=== PATIENT | female | born 1965 | race Caucasian/White ===

== ENCOUNTER → 2016-12-17 | Outpatient (CLI) | payer BC ==
--- NOTE | 2016-12-17 20:25 | XR ---
EXAMINATION TYPE: XR knee complete bilateral DATE OF EXAM: 12/17/2016 COMPARISON: NONE HISTORY: Pain TECHNIQUE: 7 views FINDINGS: Knee joint spaces are fairly normal. There is normal alignment. There is no sign of knee jacklyn int effusion. I see no fracture. There is mild spurring of the lateral tibial condyles. IMPRESSION: Mild spur formation without significant joint space narrowing. No fracture.
== END ==
LOC: RADXRMAIN 17:26
PROVIDERS: ATTEND Family Medicine
DX: M76.891 Other specified enthesopathies of right lower limb, excluding foot (principal); M76.892 Other specified enthesopathies of left lower limb, excluding foot

== ENCOUNTER → 2017-10-12 | Outpatient (CLI) | payer BC ==
--- NOTE | 2017-10-12 13:44 | EST ---
EXERCISE STRESS DATE OF SERVICE: 10/12/2017 AGE: 52 SEX: Female HT: 60 WT: 150 PROTOCOL: Geovany STAGE: IV DURATION OF EXERCISE: 9:15 HEART RATE REST: 74 BLOOD PRESSURE REST: 144/86 MAXIMUM HEART RATE ACHIEVED: 150 MAXIMUM BLOOD PRESSURE: 212/90 85% MPHR: 145 100% MPHR: 170 METS: 10.1 INDICATIONS: Palpitations, shortness of breath. CLINICAL INFORMATION: A 52-year-old female, patient of Dr. Duval, who complains of recurrent palpitations that can last for almost a minute (racing heart). She also may have recent onset hypertension. Family history of hypertension. Baseline heart rate 74 beats per minute. Baseline blood pressure 144/86 mmHg. Baseline 12-lead ECG shows normal sinus rhythm with normal cardiac intervals, normal ST segments. Patient exercised on Geovany protocol for 9 minutes 15 seconds achieving peak heart rate of 150 beats per minute. Hypertensive response to exercise was noted, blood pressure was 212/90 mmHg. There was a [address]-depression horizontal at peak exercise that persisted almost 4 minutes into recovery, but patient has no symptoms. No exercise induced arrhythmias noted. IMPRESSION: 1. Good exercise capacity. 2. Hypertensive response to exercise. 3. ECG evidence for ischemia ([address] depression at peak exercise and that persisted into recovery,horizontal depression. 4. No exercise-induced arrhythmias. MMODL / IJN: [id number] /
--- NOTE | 2017-10-13 12:43 | ECHOF ---
Referral Reason:R07.9 chest pain, I10 hypertension MEASUREMENTS -------- HEIGHT: 152.4 cm WEIGHT: 68.0 kg BP: RVIDd: 2.7 cm (< 3.3) IVSd: 1.3 cm (0.6 - 1.1) LVIDd: 3.4 cm (3.9 - 5.3) LVPWd: 1.4 cm (0.6 - 1.1) IVSs: 1.2 cm LVIDs: 2.6 cm LVPWs: 1.8 cm Ao Diam: 3.0 cm (2.0 - 3.7) AV Cusp: 1.8 cm (1.5 - 2.6) LA Diam: 2.4 cm (2.7 - 3.8) MV EXCURSION: 10.629 mm (> 18.000) MV EF SLOPE: 50 mm/s (70 - 150) EPSS: 0.5 cm MV E Jeremy: 0.60 m/s MV DecT: 211 ms MV A Jeremy: 1.01 m/s MV E/A Ratio: 0.60 AR PHT: 768 ms RAP: 5.00 mmHg RVSP: 12.60 mmHg FINDINGS -------- Sinus rhythm. This was a technically good study. The left ventricular size is normal. There is mild concentric left ventricular hypertrophy. Overa ll left ventricular systolic function is normal with, an EF between 55 - 60 %. The right ventricle is normal in size and function. The left atrium is normal in size. The right atrium is normal in size. There is mild aortic regurgitation. The mitral valve leaflets are mildly thickened. There is trace mitral regurgitation. Trace tricuspid regurgitation present. The right ventricular systolic pressure, as measured by Dopp ler, is 12.60mmHg. Pulmonic valve appears structurally normal. The aortic root size is normal. Normal inferior vena cava with normal inspiratory collapse consistent with estimated right atrial pre ssure of 5 mmHg. The pericardium is normal. CONCLUSIONS -------- 1. Sinus rhythm. 2. This was a technically good study. 3. The left ventricular size is normal. 4. There is mild concentric left ventricular hypertrophy. 5. Overall left ventricular systolic function is normal with, an EF between 55 - 60 %. 6. The right ventricle is normal in size and function. 7. The left atrium is normal in size. 8. The right atrium is normal in size. 9. There is mild aortic regurgitation. 10. The mitral valve leaflets are mildly thickened. 11. There is trace mitral regurgitation. 12. Trace tricuspid regurgitation present. 13. The right ventricular systolic pressure, as measured by Doppler, is 12.60mmHg. 14. Pulmonic valve appears structurally normal. 15. The aortic root size is normal. 16. Normal inferior vena cava with normal inspiratory collapse consistent with estimated right atrial pressure of 5 mmHg. 17. The pericardium is normal. [employer]GER: Maranda Shah RDCS
== END | disposition home or self-care (01) ==
LOC: RADNMMAIN 11:09
PROVIDERS: ATTEND Family Medicine
DX: I08.0 Rheumatic disorders of both mitral and aortic valves (principal); I10 Essential (primary) hypertension
CPT/HCPCS: 93017; 93306

== ENCOUNTER → 2018-03-21 | Outpatient (CLI) | payer BC ==
--- NOTE | 2018-03-22 10:14 | MM ---
Reason for exam: screening (asymptomatic). Last mammogram was performed 1 year and 10 months ago. History: Patient is nulliparous. Physical Findings: A clinical breast exam by your physician is recommended on an annual basis and results should be correlated with mammographic findings. MG Screening Mammo w CAD Bilateral CC and MLO view(s) were taken. Prior study comparison: May 27, 2016, bilateral MG screening mammo w CAD. March 21, 2014, bilateral MG screening mammo w CAD. The breast tissue is extremely dense which could obscure a lesion on mammography. ASSESSMENT: Benign, BI-RAD 2 RECOMMENDATION: Routine screening mammogram of both breasts in 1 year.
== END ==
LOC: RADMAMWWP 16:40
PROVIDERS: ATTEND Obstetrics & Gynecology
DX: Z12.31 Encounter for screening mammogram for malignant neoplasm of breast (principal)
CPT/HCPCS: 77067

== ENCOUNTER → 2018-09-22 | Outpatient (CLI) | payer BC ==
--- NOTE | 2018-09-23 08:12 | XR ---
EXAMINATION TYPE: XR finger RT DATE OF EXAM: 09/22/2018 COMPARISON: NONE HISTORY: Pain TECHNIQUE: Three views are submitted. FINDINGS: The osseous structures are intact. The joint spaces are preserved and there is no acute fracture or dislocation. IMPRESSION: 1. No definite osseous abnormality. If symptoms persist consider MRI.
== END | disposition home or self-care (01) ==
LOC: RADXRMAIN 17:15
PROVIDERS: ATTEND Family Medicine
DX: M79.644 Pain in right finger(s) (principal)

== ENCOUNTER → 2020-01-20 | Outpatient (CLI) | payer BC ==
--- NOTE | 2020-01-20 09:49 | CT ---
EXAMINATION TYPE: CT brain wo/w con DATE OF EXAM: 01/20/2020 COMPARISON: None HISTORY: Vertigo x [address] DLP: 2035.8mGycm CONTRAST: CT scan of the head is performed without and with IV Contrast, patient injected with 100 mL of Isovue M300. Unenhanced followed by contrast enhanced CT of the brain is submitted for evaluation. The ventricles are midline. There is no evidence for intracranial hemorrhage or extra-axial collection. No mass e ffects are identified. Visualized bony calvarium is intact. Contrast is administered and no enhanci ng lesions are detected. No pathologic enhancement is identified. If symptoms persist consider MRI. IMPRESSION: No distinct abnormality is appreciated at this time.
== END | disposition home or self-care (01) ==
LOC: RADCTMAIN 08:54
PROVIDERS: ATTEND Family Medicine
DX: R42 Dizziness and giddiness (principal); Z88.2 Allergy status to sulfonamides; Z88.5 Allergy status to narcotic agent
CPT/HCPCS: 70470; Q9967

== ENCOUNTER → 2020-03-12 | Outpatient (CLI) | payer BC ==
--- NOTE | 2020-03-13 11:34 | MM ---
Reason for exam: screening (asymptomatic). Last mammogram was performed 2 years ago. History: Patient is nulliparous. Physical Findings: A clinical breast exam by your physician is recommended on an annual basis and results should be correlated with mammographic findings. MG Screening Mammo w CAD Bilateral CC and MLO view(s) were taken. Prior study comparison: March 21, 2018, bilateral MG screening mammo w CAD. May 27, 2016, bilateral MG screening mammo w CAD. The breast tissue is heterogeneously dense. This may lower the sensitivity of mammography. Finding: There is an intermediate concern, suspicious 4 mm equal density (isodense), round mass lateral position located 9 cm from the nipple in the left breast. New finding since March 21, 2018 and May 27, 2016. ASSESSMENT: Incomplete: need additional imaging evaluation, BI-RAD 0 RECOMMENDATION: Ultrasound of the left breast. [facility] will attempt to contact patient to return for ultrasound.
== END | disposition home or self-care (01) ==
LOC: RADMAMWWP 15:16
PROVIDERS: ATTEND Family Medicine
DX: Z12.31 Encounter for screening mammogram for malignant neoplasm of breast (principal)
CPT/HCPCS: 77067

== ENCOUNTER → 2020-03-25 | Outpatient (CLI) | payer BC ==
--- NOTE | 2020-03-26 13:23 | USB ---
Reason for exam: additional evaluation requested from abnormal screening. History: Patient is nulliparous. Physical Findings: Nurse did not find any significant physical abnormalities on exam. US Breast Workup Limited LT Left limited breast ultrasound including focal area of concern, retroareolar and axilla demonstrates a 0.9 x 0.8 x 0.8cm round, hypoechoic lesion at 2 o'clock, possible deep thin walled cyst, no mammography correlate and a 0.4 x 0.4 x 0.3cm round lesion too small to characterize at 4 o'clock, probable mammogram lesion. These results were verbally communicated with the patient and result sheet given to the patient on 03/25/20. ASSESSMENT: Probably benign, BI-RAD 3 RECOMMENDATION: Ultrasound of the left breast in 6 months.
== END | disposition home or self-care (01) ==
LOC: RADUSWWP 14:54
PROVIDERS: ATTEND Family Medicine
DX: R92.8 Other abnormal and inconclusive findings on diagnostic imaging of breast (principal)

== ENCOUNTER → 2020-05-14 | Outpatient (CLI) | payer BC ==
--- NOTE | 2020-05-14 14:30 | XR ---
AP pelvis HISTORY: Lumbar radiculopathy, left-sided pelvic pain Single frontal view the pelvis Bone mineralization, joint spaces and alignment are relatively maintained, mild marginal spurring pre sent at the left hip greater than right. Mild spinal curvature noted in the lower lumbar spine. IMPRESSION: Mild osteoarthritis, consider femoral acetabular impingement left hip greater than right
--- NOTE | 2020-05-14 14:38 | XR ---
No sacral spine HISTORY: Lumbar radiculopathy 5 views of lumbosacral spine There is a slight spinal curvature present. No evident spondylolysis or spondylolisthesis. Loss of di sc height is present at intervertebral levels. There is multilevel spondylosis. Sclerosis is present in the posterior elements. Rudimentary rib suspected at L1 versus 4nonrib-bearing MR segments. IMPRESSION: Degenerative disc disease and facet arthropathy, spinal curvature.
== END | disposition home or self-care (01) ==
LOC: RADXRMAIN 11:21
PROVIDERS: ATTEND Family Medicine
DX: M51.16 Intervertebral disc disorders with radiculopathy, lumbar region (principal); M47.26 Other spondylosis with radiculopathy, lumbar region; M43.8X6 Other specified deforming dorsopathies, lumbar region; M16.12 Unilateral primary osteoarthritis, left hip
CPT/HCPCS: 72110; 72170

== ENCOUNTER → 2020-08-01 | Outpatient (CLI) | payer BC ==
--- NOTE | 2020-08-01 10:41 | MR ---
EXAMINATION TYPE: MR brain and iac wo/w con DATE OF EXAM: 08/01/2020 COMPARISON: None HISTORY: Vertigo every day for almost 1 year TECHNIQUE: Multiplanar, multisequence images of the brain and brainstem is performed without and with IV contras t, utilizing 7 mL intravenous Gadavist . FINDINGS: Diffusion weighted images demonstrate no evidence of a recent infarct or other diffusion ab normality. There is mild generalized degenerative change. Scattered areas of abnormal signal the whi te matter are nonspecific white matter ischemia. Changes of chronic sinusitis. Within the posterior n ear raising there is soft tissue nodule measuring 8 mm. Direct visualization and ENT consultation. Midline structures demonstrate normal morphology. The craniocervical junction appears within normal limits. Post contrast images demonstrate no abnormal enhancement. The dural venous sinuses appear pa tent. No evidence of cerebellopontine mass or schwannoma. Nasal septal deviation noted. IMPRESSION: 1. No evidence of cerebellopontine angle mass or acoustic schwannoma 2. There is an 8 mm nasopharyngeal mucosal nodule which direct visualization is recommended. Does not appear to be compatible cyst. Correlate clinically 3. Degenerative and nonspecific white matter changes. Differential diagnosis retention, migraine head aches and remote microvascular ischemia. Demyelinating process not excluded.
== END | disposition home or self-care (01) ==
LOC: RADMRIMAIN 08:10
PROVIDERS: ATTEND Otolaryngology
DX: R90.82 White matter disease, unspecified (principal); G37.9 Demyelinating disease of central nervous system, unspecified; D49.6 Neoplasm of unspecified behavior of brain
CPT/HCPCS: 70553; A9585

== ENCOUNTER → 2020-08-29 | Outpatient (CLI) | payer BC ==
--- NOTE | 2020-08-29 09:23 | XR ---
EXAMINATION TYPE: XR wrist complete LT DATE OF EXAM: 08/29/2020 CLINICAL HISTORY: pain TECHNIQUE: Frontal, lateral and oblique images of the left wrist are obtained. COMPARISON: None. FINDINGS: There is no acute fracture/dislocation evident. The joint spaces appear within normal malagon its. The overlying soft tissue appears unremarkable. IMPRESSION: There is no acute fracture or dislocation seen. ICD 10 NO FRACTURE, INITIAL EVALUATION
== END | disposition home or self-care (01) ==
LOC: RADXRMAIN 08:50
PROVIDERS: ATTEND Family Medicine
DX: M25.532 Pain in left wrist (principal)

== ENCOUNTER → 2020-09-24 | Outpatient (CLI) | payer BC ==
--- NOTE | 2020-09-24 11:10 | USB ---
Reason for exam: follow-up at short interval from prior study. History: Patient is nulliparous. Physical Findings: Nurse did not find any significant physical abnormalities on exam. US Breast Limited LT Left limited breast ultrasound including focal area of concern, retroareolar and axilla demonstrates a 0.8 x 0.3 x 0.6cm mixed lesion at 1 o'clock, questionable duct, a 0.9 x 0.7 x 0.9cm hypoechoic lesion at 2 o'clock and a 0.3 x 0.3 x 0.3cm lesion too small to characterize at 4 o'clock. These results were verbally communicated with the patient and result sheet given to the patient on 09/24/20. ASSESSMENT: Probably benign, BI-RAD 3 RECOMMENDATION: Follow-up diagnostic mammogram of both breasts in 6 months. Back on schedule. Ultrasound of the left breast in 6 months.
== END | disposition home or self-care (01) ==
LOC: RADUSWWP 10:12
PROVIDERS: ATTEND Family Medicine
DX: R92.8 Other abnormal and inconclusive findings on diagnostic imaging of breast (principal)

== ENCOUNTER → 2020-11-28 | Outpatient (CLI) | payer BC ==
--- NOTE | 2020-11-28 15:19 | XR ---
Lumbosacral spine, pelvis AP, sacrum and coccyx HISTORY: Trauma one month prior and pain 5 views lumbosacral spine, single frontal view the pelvis, 3 views of the sacrum and coccyx Correlation to lumbosacral spine 05/14/2020 The sacrum and coccyx shows normal bone mineralization and alignment. Sacroiliac joints are intact. N o fracture or dislocation. The lumbosacral spine shows a stable appearance. There is a slight spinal curvature. Lumbar vertebral bodies show preserved height and alignment. There is no evident spondylolysis or spondylolisthesis. Intervertebral disc height loss is present at L4-5, L3-4, L2-3. Sclerosis is present posterior elemen ts of lower lumbar spine. IMPRESSION: No acute fracture or subluxation. The pelvis shows normal bone mineralization. Joint spaces and alignment are maintained. Mild marginal spurring suggestive of some osteoarthritic change in the hips. Or graph impression: No acute fractur e or dislocation.
== END | disposition home or self-care (01) ==
LOC: RADXRMAIN 14:07
PROVIDERS: ATTEND Family Medicine
DX: Z04.3 Encounter for examination and observation following other accident (principal); S39.93XA Unspecified injury of pelvis, initial encounter
CPT/HCPCS: 72110; 72170; 72220

== ENCOUNTER → 2021-03-25 | Outpatient (CLI) | payer BC ==
--- NOTE | 2021-03-26 08:00 | MM ---
Reason for exam: additional evaluation requested from prior study. Last mammogram was performed 1 year ago. History: Patient is nulliparous. Physical Findings: Nurse did not find any significant physical abnormalities on exam. MG 3D Diag Mammo W/Cad ARON Bilateral CC and MLO view(s) were taken. Prior study comparison: September 24, 2020, left breast US breast limited LT. March 12, 2020, bilateral MG screening mammo w CAD. March 21, 2018, bilateral MG screening mammo w CAD. The breast tissue is heterogeneously dense. This may lower the sensitivity of mammography. Nodularity laterally CC view is stable for 1 year. Asymmetric density central left MLO view stable for 1 year. No significant new findings when compared with previous films. These results were verbally communicated with the patient and result sheet given to the patient on 03/25/21. ASSESSMENT: Incomplete: need additional imaging evaluation, BI-RAD 0 RECOMMENDATION: Ultrasound of the left breast.
--- NOTE | 2021-03-26 08:02 | USB ---
Reason for exam: additional evaluation requested from abnormal screening. History: Patient is nulliparous. US Breast LT Left complete breast ultrasound includes all four quadrants, the retroareolar region and axilla. Finding demonstrates a 8 x 6 x 7mm oval, mixed lesion at 2 o'clock versus 9mm previously, debris filled cyst, a 7 x 3 x 3mm lobular, mixed lesion at 4 o'clock, possibly cyst cluster, smaller on 03/25/20 suspect a cyst cluster, additional one year follow up recommended and a 3 x 2 x 3mm oval lesion too small to characterize at 10 o'clock, likely cyst. These results were verbally communicated with the patient and result sheet given to the patient on 03/25/21. ASSESSMENT: Probably benign, BI-RAD 3 RECOMMENDATION: Follow-up diagnostic mammogram of both breasts in 1 year. Ultrasound of the left breast in 1 year. (4 o'clock)
== END | disposition home or self-care (01) ==
LOC: RADMAMWWP 12:56
PROVIDERS: ATTEND Obstetrics & Gynecology
DX: N64.89 Other specified disorders of breast (principal)
CPT/HCPCS: 77062; 77066

== ENCOUNTER → 2022-02-24 | Outpatient (CLI) | payer BC ==
--- NOTE | 2022-02-25 08:41 | XR ---
EXAMINATION TYPE: XR knee complete RT DATE OF EXAM: 02/24/2022 COMPARISON: 12/17/2016 HISTORY: Pain TECHNIQUE: Three views are submitted. FINDINGS: Joint spaces are preserved. Osseous structures are intact. No acute fracture seen. Small amount of fluid in the suprapatellar bursa. IMPRESSION: 1. No acute fracture or dislocation. Small amount of fluid in the suprapatellar bursa. Correlate wit h MRI as clinically warranted.
== END | disposition home or self-care (01) ==
LOC: RADXRMAIN 17:37
PROVIDERS: ATTEND Family Medicine
DX: M25.561 Pain in right knee (principal)

== ENCOUNTER → 2022-03-12 | Outpatient (CLI) | payer BC ==
--- NOTE | 2022-03-12 15:33 | XR ---
EXAMINATION TYPE: XR Hip Bilateral Complete DATE OF EXAM: 03/12/2022 COMPARISON: NONE HISTORY: Pain TECHNIQUE: 2 views submitted of each hip FINDINGS: There is no evidence of erosive change or acute fracture. Mild concentric narrowing in the hip joint. Hypertrophic change of the acetabulum. Findings appear fairly symmetric bilaterally. There is a spin a bifida occult of the coccyx. Mild hypertrophic spurring along the lower margin of the SI joint bila terally. IMPRESSION: 1. Bilateral hip arthropathy correlate for femoral acetabular impingement.
== END | disposition home or self-care (01) ==
LOC: RADXRMAIN 14:57
PROVIDERS: ATTEND Family Medicine
DX: M16.0 Bilateral primary osteoarthritis of hip (principal)
CPT/HCPCS: 73521

== ENCOUNTER → 2022-05-27 | Outpatient (CLI) | payer BC ==
--- NOTE | 2022-05-27 09:03 | MM ---
Reason for Exam: Follow-up at short interval from prior study. Last mammogram was performed 1 year(s) and 2 month(s) ago. Patient History: Menarche at age 14. Patient has no children. Currently using Progesterone, starting at age 57. Risk Values: Lore 5 year model risk: 1.3%. NCI Lifetime model risk: 9.1%. Tissue Density: The breast tissue is heterogeneously dense. This may lower the sensitivity of mammography. Findings: Analyzed By CAD. Stable fibroglandular tissue. No suspicious masses, distortions or calcifications. Overall Assessment: Incomplete: need additional imaging evaluation, BI-RAD 0 Management: Diagnostic Breast Ultrasound of the left breast. A clinical breast exam by your physician is recommended on an annual basis and results should be correlated with mammographic findings. This exam should not preclude additional follow-up of suspicious palpable abnormalities. Results were given to the patient verbally at the time of exam. Electronically signed and approved by: Gasper Fung DO
--- NOTE | 2022-05-27 10:15 | USB ---
Patient History: Menarche at age 14. Patient has no children. Currently using Progesterone, starting at age 57. Risk Values: Lore 5 year model risk: 1.3%. NCI Lifetime model risk: 9.1%. Technique: Method: Whole Breast Handheld. Prior Study Comparison: 03/21/2018 Bilateral Screening Mammogram, [facility]. 03/12/2020 Bilateral Screening Mammogram, [facility]. 03/25/2021 Bilateral Diagnostic Mammogram, [facility]. Findings: The whole breast of the left breast, the axilla of the left breast and the retroareolar of the left breast were scanned. Whole left breast ultrasound was performed including the axilla and retroareolar region.. * Left breast 12:00 4 cm from nipple is a 6 x 2 mm lesion with internal heterogeneity. This is new from prior. * Left breast 2:00 6 cm from nipple 6 mm hypoechoic lesion is unchanged from prior and may actually be minimally smaller from prior. Left breast 2:00 5 cm from nipple hyperechoic 4 mm lesion felt to have posterior acoustic enhancement likely representing small cysts. This is unchanged from prior. * Left breast 4:00 6 cm from nipple cluster of cysts measuring up to 6 x 4 mm unchanged from prior. * Left breast 10:00 6 cm from nipple small hypoechoic area which is unchanged from prior. This measures approximately 3 x 2 mm. Overall Assessment: Probably benign, BI-RAD 3 Management: Diagnostic Breast Ultrasound of the left breast in 6 months. Follow-up ultrasound of the whole left breast particularly the new 12:00 lesion 4 cm from the nipple in 6 months. A clinical breast exam by your physician is recommended on an annual basis and results should be correlated with mammographic findings. This exam should not preclude additional follow-up of suspicious palpable abnormalities. Results were given to the patient verbally at the time of exam. Electronically signed and approved by: Gasper Fung DO
== END | disposition home or self-care (01) ==
LOC: RADMAMWWP 08:19
PROVIDERS: ATTEND Obstetrics & Gynecology
DX: R92.8 Other abnormal and inconclusive findings on diagnostic imaging of breast (principal)
CPT/HCPCS: 77062; 77066

== ENCOUNTER → 2022-06-02 | Outpatient (CLI) | payer BC ==
--- NOTE | 2022-06-22 18:11 | P.CEMON ---
14 day event monitor shows sinus mechanism with PVCs and PACs No sustained arrhythmias no nonsustained VT
--- NOTE | 2022-06-24 08:56 | EM ---
14 day event monitor shows sinus mechanism with PVCs and PACs No sustained arrhythmias no nonsustained VT MTDD
== END | disposition home or self-care (01) ==
LOC: RADECHMAIN 12:34
PROVIDERS: ATTEND Family Medicine
DX: R00.2 Palpitations (principal)
CPT/HCPCS: 93270

== ENCOUNTER → 2023-03-22 | Outpatient (CLI) | payer BC ==
--- NOTE | 2023-03-22 12:58 | USB ---
Reason for Exam: Follow-up at short interval from prior study. Patient History: Menarche at age 14. Patient has no children. Currently using Progesterone, starting at age 57. Risk Values: Lore 5 year model risk: 1.3%. NCI Lifetime model risk: 9.1%. Technique: Method: Whole Breast Handheld. Prior Study Comparison: 03/12/2020 Bilateral Screening Mammogram, [facility]. 03/25/2021 Bilateral Diagnostic Mammogram, [facility]. 05/27/2022 Bilateral MG 3D diag mammo w/cad ARON, [facility]. Findings: The whole breast of the left breast, the axilla of the left breast and the retroareolar of the left breast were scanned. There is a small cluster of cysts noted at the left 12:00 position measuring 5 x 2 mm at the 12:00 position versus 8 x 3 mm previously. No solid masses are seen. Overall Assessment: Benign, BI-RAD 2 Management: Screening Mammogram of both breasts in 2 months. A clinical breast exam by your physician is recommended on an annual basis and results should be correlated with mammographic findings. This exam should not preclude additional follow-up of suspicious palpable abnormalities. Results were given to the patient verbally at the time of exam. Electronically signed and approved by: Fili Toscano M.D. Radiologis
== END | disposition home or self-care (01) ==
LOC: RADUSWWP 12:17
PROVIDERS: ATTEND Obstetrics & Gynecology
DX: R92.8 Other abnormal and inconclusive findings on diagnostic imaging of breast (principal); N60.01 Solitary cyst of right breast; N60.02 Solitary cyst of left breast

== ENCOUNTER → 2023-06-18 | Outpatient (CLI) | payer BC ==
--- NOTE | 2023-06-22 11:53 | MM ---
Reason for Exam: Screening (asymptomatic). Last mammogram was performed 1 year(s) and 1 month(s) ago. Patient History: Menarche at age 14. Patient has no children. Postmenopausal. Currently using Progesterone, starting at age 57. Risk Values: Lore 5 year model risk: 1.4%. NCI Lifetime model risk: 8.9%. Prior Study Comparison: 03/12/2020 Bilateral Screening Mammogram, [facility]. 03/25/2021 Bilateral Diagnostic Mammogram, [facility]. 05/27/2022 Bilateral MG 3D diag mammo w/cad ARON, [facility]. Tissue Density: The breast tissue is extremely dense which could obscure a lesion on mammography. Findings: Analyzed By CAD. Pattern appears symmetrical and stable. There may be some developing calcifications in the outer left breast not as clearly identified on the mediolateral oblique view. These are not well visualized on the tomographic images. Additional workup is recommended. Patient to return for diagnostic mammography of the left breast to include magnification views and standard mediolateral view. Overall Assessment: Incomplete: need additional imaging evaluation, BI-RAD 0 Management: Diagnostic Mammogram of the left breast. A negative mammogram report should not preclude additional follow up of suspicious palpable abnormalities. Patient should continue monthly self breast exam. A clinical breast exam by your physician is recommended on an annual basis and results should be correlated with mammographic findings. Electronically signed and approved by: Aram Vieira D.O. Radiologis
== END | disposition home or self-care (01) ==
LOC: RADMAMWWP 16:28
PROVIDERS: ATTEND Obstetrics & Gynecology
DX: Z12.31 Encounter for screening mammogram for malignant neoplasm of breast (principal); Z78.0 Asymptomatic menopausal state
CPT/HCPCS: 77063; 77067

== ENCOUNTER → 2023-07-26 | Outpatient (CLI) | payer BC ==
--- NOTE | 2023-07-26 11:02 | MM ---
Reason for Exam: Additional evaluation requested from abnormal screening. Last screening mammogram was performed 1 month(s) ago. Patient History: Menarche at age 14. Patient has no children. Postmenopausal. Currently using Progesterone, starting at age 57. Risk Values: Lore 5 year model risk: 1.4%. NCI Lifetime model risk: 8.9%. Prior Study Comparison: 03/25/2021 Bilateral Diagnostic Mammogram, [facility]. 05/27/2022 Bilateral MG 3D diag mammo w/cad ARON, [facility]. 06/18/2023 Bilateral MG 3D screening mammo w/cad, [facility]. Tissue Density: Left: The breast tissue is heterogeneously dense. This may lower the sensitivity of mammography. Findings: Analyzed By CAD. Questionable calcifications for posterior and lateral aspect of the left breast do not persist on magnification views. Findings likely product of synthesized view technique. Additional areas of asymmetric density on the MLO view did not persist on true lateral and are compatible with superimposition shadow. Overall Assessment: Benign, BI-RAD 2 Management: Screening Mammogram of both breasts in 1 year. . Results were given to the patient verbally at the time of exam. Patient should continue monthly self-breast exams. A clinical breast exam by your physician is recommended on an annual basis. This exam should not preclude additional follow-up of suspicious palpable abnormalities. Note on Lore scores and lifetime risk: 1. A Lore score greater than 3% is considered moderate risk. If this is the case, consider specialist referral to assess eligibility for a risk reducing agent. 2. If overall lifetime risk for the development of breast cancer is 20% or higher, the patient may qualify for future screening with alternating mammogram and breast MRI. Electronically signed and approved by: Hortencia Puente M.D. Radiologist
== END | disposition home or self-care (01) ==
LOC: RADMAMWWP 10:19
PROVIDERS: ATTEND Obstetrics & Gynecology
DX: R92.332 Mammographic heterogeneous density, left breast (principal); Z78.0 Asymptomatic menopausal state
CPT/HCPCS: 77061; 77065

== ENCOUNTER → 2024-07-31 | Outpatient (CLI) | payer BC ==
--- NOTE | 2024-07-31 14:55 | MM ---
Reason for Exam: Screening (asymptomatic). Last mammogram was performed 1 year(s) and 1 month(s) ago. Patient History: Menarche at age 14. Patient has no children. Postmenopausal. Currently using Progesterone, starting at age 57. Risk Values: Lore 5 year model risk: 1.4%. NCI Lifetime model risk: 8.7%. Prior Study Comparison: 05/27/2022 Bilateral MG 3D diag mammo w/cad [facility], [facility]. 06/18/2023 Bilateral MG 3D screening mammo w/cad, [facility]. 07/26/2023 Left MG 3D work up w/cad LT, [facility]. Tissue Density: The breasts are heterogeneously dense, which may obscure small masses. Findings: Analyzed By CAD. There is no suspicious group of microcalcifications or new suspicious mass in either breast. Overall Assessment: Negative, BI-RAD 1 Management: Screening Mammogram of both breasts in 1 year. Patient should continue monthly self-breast exams. A clinical breast exam by your physician is recommended on an annual basis. This exam should not preclude additional follow-up of suspicious palpable abnormalities. Note on Lore scores and lifetime risk: 1. A Lore score greater than 3% is considered moderate risk. If this is the case, consider specialist referral to assess eligibility for a risk reducing agent. 2. If overall lifetime risk for the development of breast cancer is 20% or higher, the patient may qualify for future screening with alternating mammogram and breast MRI. [facility], , 07/31/2024 2:51 PM. Electronically signed and approved by: Hortencia Puente M.D. Radiologist
== END | disposition home or self-care (01) ==
LOC: RADMAMWWP 11:04
PROVIDERS: ATTEND Obstetrics & Gynecology
DX: Z12.31 Encounter for screening mammogram for malignant neoplasm of breast (principal); R92.333 Mammographic heterogeneous density, bilateral breasts; Z78.0 Asymptomatic menopausal state
CPT/HCPCS: 77063; 77067